=== PATIENT | male | born 1950 | race Caucasian/White ===

== ENCOUNTER 2022-12-07 17:24 | Inpatient (IN) | payer MEDICARE, OTHER ==
[~2022-12-07] VITALS: Ht 182.9 cm; Wt 72.8 kg
[2022-12-07 17:50] LABS: BASOPHILS ABSOLUTE AUTO 0.04 K/mm3 (0.00-0.23); BASOPHILS PERCENT AUTO 1 % (0-2); EOSINOPHILS ABSOLUTE AUTO 0.09 K/mm3 (0.00-0.68); EOSINOPHILS PERCENT AUTO 2 % (0-6); IMMATURE GRAN ABSOLUTE AUTO 0.02 K/mm3 (0.00-0.10); IMMATURE GRAN PERCENT AUTO 0 % (0-1); LYMPHOCYTES ABSOLUTE AUTO 1.79 K/mm3 (0.84-5.20); LYMPHOCYTES PERCENT AUTO 29 % (21-46); MONOCYTES ABSOLUTE AUTO 0.74 K/mm3 (0.16-1.47); MONOCYTES PERCENT AUTO 12 % (4-13); Mean Corpuscular HGB 20.6 pg (26.0-34.0); Mean Corpuscular HGB Conc 28.7 g/dL (31.5-36.5); Mean Corpuscular Volume 72 fL (80-100); Mean Platelet Volume 9.7 fL (9.1-12.4); NEUTROPHILS ABSOLUTE AUTO 3.42 K/mm3 (1.96-9.15); NEUTROPHILS PERCENT AUTO 56 % (41-73); Platelet Count 132 K/mm3 (150-400); RDW Coefficient Variation 18.6 % (11.7-14.2); RDW Standard Deviation 48.2 fL (35.1-46.3); Red Blood Cell Count 2.33 M/mm3 (4.30-5.90)
[2022-12-07 17:57] LABS: Hematocrit 16.7 % (37.0-53.0); Hemoglobin 4.8 g/dL (13.5-17.5)
[2022-12-07 18:27] LABS: Albumin, Blood 3.1 g/dL (3.4-5.0); Albumin/Globulin Ratio 0.6 (0.8-1.8); Bilirubin, Total 0.7 mg/dL (0.1-1.0); Bun/Creatinine Ratio 26.9 (12.0-20.0); Calcium, Blood 8.6 mg/dL (8.5-10.1); Creatinine, Blood 1.19 mg/dL (0.60-1.20); Globulin, Blood 5.4 g/dL (2.2-4.0); Potassium, Blood 4.4 mmol/L (3.5-5.5); Total Protein, Blood 8.5 g/dL (6.4-8.2)
[2022-12-07 20:34] LABS: Base Excess Venous -5.2 mmol/L; Bicarbonate Venous 20.4 mmol/L (24.0-30.0); PCO2 Venous 30.7 mmHg (38-42); pH Blood Venous 7.41 (7.34-7.37)
[2022-12-07 20:47] LABS: IMMATURE RETIC FRACTION 25.7 % (2.3-16.0); RETIC HGB EQUIVALENT 20.8 pg (28.20-36.60); RETICULOCYTE ABSOLUTE 0.0413 M/mm3 (0.0200-0.1100); RETICULOCYTE COUNT PERCENT 1.7 % (0.50-2.50)
[2022-12-07 21:16] LABS: Magnesium, Blood 1.7 mg/dL (1.6-2.4)
[2022-12-07 21:17] LABS: Percent Saturation 3.9 % (20.0-50.0); Thyroid Stimulating Hormone 1.81 uIU/mL (0.360-4.800)
[2022-12-07 21:47] VITALS: BP 156/73
[2022-12-07] MEDS ORDERED: LISI20 PO (22:43)
[2022-12-07 23:32] VITALS: BP 154/76
[2022-12-08] VITALS (10 sets, daily range): BP systolic 107–148; BP diastolic 56–86
--- NOTE | 2022-12-08 06:19 | NUR ---
SHIFT SUMMARY: "REBECCA" IS A&OX4. VSS, NO ACUTE EVENTS OVERNIGHT. PT HAS RECEIVED THREE BAGS OF BLOOD THIS SHIFT, ONE IN THE ER AND TWO ON THE FLOOR. PT HAS DENIED ANY NEW SYMPTOMS. HE IS A STANDBY ASSIST TO THE BATHROOM, UNSTEADINESS NOTED. PT HAS COMPLAINED OF PAIN TO HIS RIGHT FOOT AND ANKLE. ON-CALL PHYSICIAN NOTIFIED, ORDER FOR URIC ACID LAB OBTAINED, WELL HEAT AND COLD THERAPIES. IV TO BILATERAL AC'S PATENT. HE IS TOLERATING PO INTAKE WELL. HE IS LYING IN BED WITH THE CALL LIGHT IN REACH. WCTM UNTIL REPORT IS GIVEN TO DAY SHIFT RN.
[2022-12-08 06:37] LABS: Hematocrit 23.9 % (37.0-53.0); Hemoglobin 7.6 g/dL (13.5-17.5)
[2022-12-08 07:08] LABS: Bun/Creatinine Ratio 25.4 (12.0-20.0); Calcium, Blood 8.6 mg/dL (8.5-10.1); Creatinine, Blood 1.14 mg/dL (0.60-1.20); Magnesium, Blood 1.6 mg/dL (1.6-2.4); Potassium, Blood 4.4 mmol/L (3.5-5.5)
--- NOTE | 2022-12-08 09:00 | NUR ---
pt laying in bed awake, a/ox3, irritable, apparetly did not sleep last night and just wants to sleep, doesn't want breakfast, lungs are clear t/o, resp even and unlabored, no cough noted, hrr, murmur noted, 2+ edema noted, cap refill <3 sec, vs stable, afebrile, iv site is clear and patent, btx4, abd flat soft nontender, voids without diff, skin has rft red, otherwise c/w/d, levar, he is a one person assist with a walker, jaja, call light in reach.
--- NOTE | 2022-12-08 16:34 | NUR ---
pt was given tylenol for right leg pain, when checked on him he was sleeping, is sleeping still. call light in reach.
--- NOTE | 2022-12-08 18:07 | NUR ---
pt states tylenol helped his leg pain, and was able to sleep after took affect, slept most of the day, states he feels better as he was up all night, no acute changes this shift. call light in reach.
--- NOTE | 2022-12-08 18:44 | NUR ---
Pt did eat dinner tonight, had a large liquid bm after eating, stool was brown, linen changed, call light in reach.
[2022-12-09 05:04] VITALS: BP 117/64
--- NOTE | 2022-12-09 07:35 | NUR ---
Shift Summary Pt c/o throbbing pain in his R ankle, knee and foot. His right food was also noticably more swollen than his L foot. Tylenol was controlling his pain very well, night doctor ordered PRN Oxy Q4. Pt slept well for 4 hours once pain was controlled. Pt had diahrrea at the start of shift and then one more BM around 2200 which he states was more solid, stool sample sent to lab.
[2022-12-09 08:06] VITALS: BP 140/68
[2022-12-09 08:58] LABS: BASOPHILS ABSOLUTE AUTO 0.03 K/mm3 (0.00-0.23); BASOPHILS PERCENT AUTO 1 % (0-2); EOSINOPHILS ABSOLUTE AUTO 0.11 K/mm3 (0.00-0.68); EOSINOPHILS PERCENT AUTO 2 % (0-6); Hematocrit 23.6 % (37.0-53.0); Hemoglobin 7.5 g/dL (13.5-17.5); IMMATURE GRAN ABSOLUTE AUTO 0.01 K/mm3 (0.00-0.10); IMMATURE GRAN PERCENT AUTO 0 % (0-1); LYMPHOCYTES ABSOLUTE AUTO 1.47 K/mm3 (0.84-5.20); LYMPHOCYTES PERCENT AUTO 28 % (21-46); MONOCYTES ABSOLUTE AUTO 0.67 K/mm3 (0.16-1.47); MONOCYTES PERCENT AUTO 13 % (4-13); Mean Corpuscular HGB 23.7 pg (26.0-34.0); Mean Corpuscular HGB Conc 31.8 g/dL (31.5-36.5); Mean Corpuscular Volume 74 fL (80-100); Mean Platelet Volume 9.9 fL (9.1-12.4); NEUTROPHILS ABSOLUTE AUTO 3.04 K/mm3 (1.96-9.15); NEUTROPHILS PERCENT AUTO 57 % (41-73); Platelet Count 116 K/mm3 (150-400); RDW Coefficient Variation 18.8 % (11.7-14.2); Red Blood Cell Count 3.17 M/mm3 (4.30-5.90); White Blood Cell Count 5.33 K/mm3 (4.00-11.30)
[2022-12-09 09:49] LABS: Albumin, Blood 2.7 g/dL (3.4-5.0); Albumin/Globulin Ratio 0.6 (0.8-1.8); Bilirubin, Total 1.6 mg/dL (0.1-1.0); Calcium, Blood 8.3 mg/dL (8.5-10.1); Creatinine, Blood 1.04 mg/dL (0.60-1.20); Globulin, Blood 4.7 g/dL (2.2-4.0); Total Protein, Blood 7.4 g/dL (6.4-8.2)
[2022-12-09 09:56] LABS: Stool Occult Blood Guaiac 1 Neg (Neg)
[2022-12-09 15:57] VITALS: BP 141/82
--- NOTE | 2022-12-09 18:16 | NUR ---
DR. GLOVER CONTACTED PT REPORTS WORSENING PAIN IN RLE FROM KNEE TO TOES-PT STATES WORSE BY KNEE AND GETTING WORSE T/O SHIFT. PAIN MEDICATED PER EMAR-MEDS ADJUST. PLAN TO REPORT TO DAY SHIFT RN FOR FURTHER TX IN AM.
--- NOTE | 2022-12-09 18:40 | NUR ---
SHIFT SUMMARY PT A&OX4 AND IN PLEASENT MOOD T/O SHIFT. C/O WORSENING PAIN-DR. GLOVER NOTIFIED PLAN TO PASS ON TO AM NURSE. PAIN MEDICATED PER EMAR. TOLERATING PO INTAKE WELL VSS. CALL LIGHT W/IN REACH.
[2022-12-09 19:14] VITALS: BP 157/88
--- NOTE | 2022-12-10 06:29 | NUR ---
Shift Summary Dr. Torres came to see pt regarding possible blood clot in R leg. R leg measured larger than L leg and he ordered D-Dimer and V. Duplex. D-Dimer was elevated, awaiting results of V. Duplex. Pt c/o 02/12 R knee pain which is well controlled by PRN Oxycodone as ordered. Incontinent voids, attends changed PRN. Slept well through much of the night.
[2022-12-10 06:33] VITALS: BP 111/57
[2022-12-10 07:26] VITALS: BP 113/59
[2022-12-10 08:55] LABS: BASOPHILS ABSOLUTE AUTO 0.04 K/mm3 (0.00-0.23); BASOPHILS PERCENT AUTO 1 % (0-2); EOSINOPHILS ABSOLUTE AUTO 0.13 K/mm3 (0.00-0.68); EOSINOPHILS PERCENT AUTO 2 % (0-6); Hematocrit 26.7 % (37.0-53.0); Hemoglobin 8.3 g/dL (13.5-17.5); IMMATURE GRAN ABSOLUTE AUTO 0.02 K/mm3 (0.00-0.10); IMMATURE GRAN PERCENT AUTO 0 % (0-1); LYMPHOCYTES ABSOLUTE AUTO 1.43 K/mm3 (0.84-5.20); LYMPHOCYTES PERCENT AUTO 22 % (21-46); MONOCYTES ABSOLUTE AUTO 0.69 K/mm3 (0.16-1.47); MONOCYTES PERCENT AUTO 10 % (4-13); Mean Corpuscular HGB 23.7 pg (26.0-34.0); Mean Corpuscular HGB Conc 31.1 g/dL (31.5-36.5); Mean Corpuscular Volume 76 fL (80-100); Mean Platelet Volume 9.6 fL (9.1-12.4); NEUTROPHILS ABSOLUTE AUTO 4.32 K/mm3 (1.96-9.15); NEUTROPHILS PERCENT AUTO 65 % (41-73); Platelet Count 135 K/mm3 (150-400); RDW Coefficient Variation 19.6 % (11.7-14.2); RDW Standard Deviation 53.6 fL (35.1-46.3); White Blood Cell Count 6.63 K/mm3 (4.00-11.30)
--- NOTE | 2022-12-10 09:00 | NUR ---
pt laying in bed awake a/ox3, cooperative with care, follows commands well, states his right knee and foot are painful, lungs are clear t/o, resp evena and unlabored, no cough noted, on r/a, hrr, murmur noted, edema noted to right le, piv site to r and l ac's, sites are clear and patent, bt x4, abd flat soft nontender, voids without diff, skin c/w/d, maew, jaja, call light in reach.
[2022-12-10 09:25] LABS: Albumin, Blood 2.8 g/dL (3.4-5.0); Albumin/Globulin Ratio 0.5 (0.8-1.8); Bilirubin, Total 1.7 mg/dL (0.1-1.0); Bun/Creatinine Ratio 24.5 (12.0-20.0); Calcium, Blood 8.9 mg/dL (8.5-10.1); Creatinine, Blood 1.06 mg/dL (0.60-1.20); Globulin, Blood 5.1 g/dL (2.2-4.0); Total Protein, Blood 7.9 g/dL (6.4-8.2)
[2022-12-10 16:32] VITALS: BP 131/62
--- NOTE | 2022-12-10 18:08 | NUR ---
pt complaining of right knee and foot pain, states 03/15, will medicate, pt/ot worked with him today, no further changes this shift. call light in reach.
[2022-12-10 20:06] VITALS: BP 111/58
[2022-12-11 03:47] VITALS: BP 123/58
--- NOTE | 2022-12-11 06:45 | NUR ---
SHIFT SUMMARY NOC PT A/O X 4. NO ACUTE CHANGES TO REPORT. PT WAS MEDICATED PER EMAR FOR PAIN IN R KNEE. PT R KNEE XR CAME BACK WITH SEVERE OSTEO ARTHRITIS WITH A SMALL EFFUSION, AND CHONDOROCALCINOSIS. PT IS CURRENTLY RESTING WITH BED IN LOWEST POSITION, AND CALL LIGHT WITHIN REACH.
[2022-12-11 07:48] VITALS: BP 117/60
[2022-12-11 10:08] LABS: BASOPHILS ABSOLUTE AUTO 0.04 K/mm3 (0.00-0.23); BASOPHILS PERCENT AUTO 1 % (0-2); EOSINOPHILS ABSOLUTE AUTO 0.25 K/mm3 (0.00-0.68); EOSINOPHILS PERCENT AUTO 3 % (0-6); Hematocrit 26.1 % (37.0-53.0); IMMATURE GRAN ABSOLUTE AUTO 0.03 K/mm3 (0.00-0.10); IMMATURE GRAN PERCENT AUTO 0 % (0-1); LYMPHOCYTES ABSOLUTE AUTO 1.93 K/mm3 (0.84-5.20); LYMPHOCYTES PERCENT AUTO 26 % (21-46); MONOCYTES ABSOLUTE AUTO 0.71 K/mm3 (0.16-1.47); MONOCYTES PERCENT AUTO 10 % (4-13); Mean Corpuscular HGB Conc 30.7 g/dL (31.5-36.5); Mean Corpuscular Volume 78 fL (80-100); Mean Platelet Volume 10.1 fL (9.1-12.4); NEUTROPHILS ABSOLUTE AUTO 4.49 K/mm3 (1.96-9.15); NEUTROPHILS PERCENT AUTO 60 % (41-73); Platelet Count 145 K/mm3 (150-400); RDW Coefficient Variation 21.1 % (11.7-14.2); Red Blood Cell Count 3.33 M/mm3 (4.30-5.90); White Blood Cell Count 7.45 K/mm3 (4.00-11.30)
[2022-12-11 10:34] LABS: Albumin, Blood 2.7 g/dL (3.4-5.0); Albumin/Globulin Ratio 0.5 (0.8-1.8); Bilirubin, Direct 0.8 mg/dL (0.0-0.3); Bilirubin, Indirect 0.6 mg/dL (0.1-0.7); Bilirubin, Total 1.4 mg/dL (0.1-1.0); Calcium, Blood 8.9 mg/dL (8.5-10.1); Creatinine, Blood 1.25 mg/dL (0.60-1.20); Globulin, Blood 5.1 g/dL (2.2-4.0); Potassium, Blood 3.9 mmol/L (3.5-5.5); Total Protein, Blood 7.8 g/dL (6.4-8.2)
--- NOTE | 2022-12-11 14:15 | NUR ---
1345: RN APPROACHED BY WHO STATES PT IS CONFUSED. RN ENTERED ROOM, PT IS ALERT TO SELF ONLY. PT WAS A&O x3 THIS AM. PT STATED THIS AM HIS LAST ETOH WAS 8 WEEKS AGO. STATES PT HAS NOT STOPPED DRINKING AND HAS MULTIPLE HOLE IN THE LEONE AT HOME FROM HIM FALLING INTO WITH HIS HEAD. LAST FALL SHE RECALLS WAS 1 MONTH AGO. BP 11/61, HR 103, 02 SAT 99%RA. RESP EVEN NONLABORED, SKIN WARM DRY. WHEN ASKED AGAIN HIS LAST ETOH PT STATES 1950. CORRECTED HIM STATING THATS HIS BD, ASKED AGAIN WITH SAME RESPONSE. DR. MORE CALLED, STAT CT HEAD ORDERED AND WAS ASKED TO ENTER [facility] PROTOCOLS/ASSSESSMENT IN. AST FROM SHAREPOINT MANAGER TO ENTER ORDERS. PT TO CT AT 1415.
[2022-12-11 14:28] VITALS: BP 129/66
--- NOTE | 2022-12-11 17:48 | NUR ---
SHIFT SUMMARY: PT WAS A&OX3 UNTIL 1345, SEE PREVIOUS NOTE. NO CHANGE FROM 1345. CIWA SCALE REMAINS 3. ALERT TO SELF ONLY. RIGHT KNEE PAIN MANAGED WITH CURRENT REGIME. VSS. WILL CONTINUE TO FOLLOW.
[2022-12-11 19:59] VITALS: BP 119/51
[2022-12-12 04:34] VITALS: BP 126/54
--- NOTE | 2022-12-12 04:39 | NUR ---
SHIFT SUMMARY PT LAYING IN BED DURING BEDSIDE REPORT FROM [place]TE RN- PT REPORTS PAIN IN RIGHT KNEE AND REQUESTED PAIN DURING ASSESSMENT- PT FEARFUL OF RIGHT KNEE BEING TOUCHED OR MOVED- PT INCONTIENT OF URINE- BRIEF CHANGED T/O NIWIHT- PT C/O PAIN IN THE RIGHT KNEE WITH EVERY BRIEF CHANGED AND REPOSITIONED- ELEVATED BILAT LEGS WITH PILLOWS TO DECREASE SWELLING AND FOR COMFORT- 0140 TEDDY CALLED FOR UPDATE- ACCORDING TO PT RIGHT KNEE IS CHRONICALLY SWOLLEN AND PAINFUL - PER , PT'S PAIN HAS INCREASED SINCE ADMISSION- PT CONTINUES WITH [facility] BED LOW POSITION, CALL LIGHT WITHIN REACH
[2022-12-12 06:41] LABS: Albumin, Blood 2.5 g/dL (3.4-5.0); Albumin/Globulin Ratio 0.5 (0.8-1.8); Bilirubin, Total 1.5 mg/dL (0.1-1.0); Bun/Creatinine Ratio 28.9 (12.0-20.0); Calcium, Blood 8.8 mg/dL (8.5-10.1); Creatinine, Blood 1.14 mg/dL (0.60-1.20); Globulin, Blood 5.1 g/dL (2.2-4.0); Potassium, Blood 4.4 mmol/L (3.5-5.5); Total Protein, Blood 7.6 g/dL (6.4-8.2)
[2022-12-12 07:37] VITALS: BP 113/54
[2022-12-12 09:31] LABS: BASOPHILS ABSOLUTE AUTO 0.05 K/mm3 (0.00-0.23); BASOPHILS PERCENT AUTO 1 % (0-2); EOSINOPHILS ABSOLUTE AUTO 0.08 K/mm3 (0.00-0.68); EOSINOPHILS PERCENT AUTO 1 % (0-6); Hematocrit 26.6 % (37.0-53.0); Hemoglobin 8.3 g/dL (13.5-17.5); IMMATURE GRAN ABSOLUTE AUTO 0.02 K/mm3 (0.00-0.10); IMMATURE GRAN PERCENT AUTO 0 % (0-1); LYMPHOCYTES ABSOLUTE AUTO 1.72 K/mm3 (0.84-5.20); LYMPHOCYTES PERCENT AUTO 22 % (21-46); MONOCYTES PERCENT AUTO 10 % (4-13); Mean Corpuscular HGB 24.4 pg (26.0-34.0); Mean Corpuscular HGB Conc 31.2 g/dL (31.5-36.5); Mean Corpuscular Volume 78 fL (80-100); Mean Platelet Volume 9.6 fL (9.1-12.4); NEUTROPHILS ABSOLUTE AUTO 5.23 K/mm3 (1.96-9.15); NEUTROPHILS PERCENT AUTO 66 % (41-73); Platelet Count 136 K/mm3 (150-400); RDW Coefficient Variation 21.9 % (11.7-14.2); RDW Standard Deviation 60.5 fL (35.1-46.3)
[2022-12-12 14:54] VITALS: BP 104/61
--- NOTE | 2022-12-12 17:08 | NUR ---
SHIFT SUMMARY: Pt remains pleasantly confused to self this shift. Does follow commands. No other deficits assessed. Pt did sit at side of bed with PT today. Pain managed with current regime and is sleeping without grimace. Incontinent of urine. Phoebe care and bath provided. Repositioned for comfort frequently. Skin intact. at bedside earlier, no questions at this time. Her work phone # for [employer] is [phone]
[2022-12-12 19:40] VITALS: BP 125/58
--- NOTE | 2022-12-13 00:27 | NUR ---
ATTEMPTED TO CALL GI CONSULT IN, PER ANSWERING SERVICE WE HAVE TO CALL DR. HEARN DIRECTLY TOMORROW AM FOR THE CONSULT. WILL RELAY TO DAYSHIFT RN.
--- NOTE | 2022-12-13 04:15 | NUR ---
SHIFT SUMMARY; NO ACUTE CHANGES OVERNIGHT. THE PT IS AXO X3, PLEASANTLY CONFUSED AND EASILY REDIRECTABLE. THE PT HAS BEEN SLEEPING FOR THE MAJORITY OF THE NIGHT. THE PT REPORTS SOME MUSCLE PAIN IN HIS HIPS AND KNEES, TYLENOL AND THE HEATING PAD SEEM TO BE PROVIDING THE PT WITH GOOD RELIEF. THE PT IS A 2 ASSIST TO THE BEDSIDE, BUT THE PT HAS NOT ATTEMPTED OOB THIS EVENING. THE PT IS AWAITING A GI CONSULT-DR. FRANZ. BY THIS AM, TO CALL FOR CONSULT. CURRENTLY THE PT IS SLEEPING IN BED WITH THE BED IN THE LOWEST POSITION AND THE CALL LIGHT AT BEDSIDE.
[2022-12-13 04:58] VITALS: BP 117/57
[2022-12-13 07:12] LABS: Albumin, Blood 2.4 g/dL (3.4-5.0); Albumin/Globulin Ratio 0.5 (0.8-1.8); Bun/Creatinine Ratio 34.5 (12.0-20.0); Calcium, Blood 8.9 mg/dL (8.5-10.1); Creatinine, Blood 0.99 mg/dL (0.60-1.20); Globulin, Blood 5.1 g/dL (2.2-4.0); Potassium, Blood 4.2 mmol/L (3.5-5.5); Total Protein, Blood 7.5 g/dL (6.4-8.2)
[2022-12-13 07:27] VITALS: BP 122/56
[2022-12-13 15:26] VITALS: BP 123/58
--- NOTE | 2022-12-13 16:25 | NUR ---
SHIFT SUMMARY PATIENT IS ALERT AND ORIENTED. PATIENT HAS HAD NO COMPLAINTS OF NAUSEA, SOB OR VOMITTING THIS SHIFT. PATIENT COMPLAINED OF PAIN AND MEDICATED PER EMAR. PATIENT HAS HAD NO ACUTE EVENTS THIS SHIFT. VITAL SIGNS REVIEWED. PATIENT WORKED WELL WITH PHYSICAL THERAPY. BED IN LOCKED AND LOWEST POSITION. CALL LIGHT IN PLACE. WILL MONITOR UNTIL SHIFT CHANGE.
[2022-12-13 19:53] VITALS: BP 133/64
--- NOTE | 2022-12-14 04:39 | NUR ---
SHIFT SUMMARY; NO ACUTE CHANGES OVERNIGHT. THE PT IS AXO 3 THIS EVENING, FORGETFULL AT TIMES. THE PT HAS NOT ATTEMPTED TO GET OOB T/O THE NIGHT. THE PTS LEGS WERE VERY PAINFUL AT THE BEGINNING OF SHIFT, HOWEVER, AFTER BEING MEDICATED THE PTS LEG PAIN WAS MINIMAL. THE PT HAD A LOW GRADE FEVER AT THE BEGINNIG OF SHIFT FOR WHICH HE RECIEVED TYLENOL AND THE FEVER RESOLVED. THE PT DENIES ANY SOB, CHEST PAIN/PRESSURE OR N/V. CURRENTLY THE PT IS SLEEPING IN BED WITH THE BED IN THE LOWEST POSITION AND THE CALL LIGHT AT BEDSIDE.
[2022-12-14 05:07] VITALS: BP 116/61
[2022-12-14 06:15] LABS: Albumin, Blood 2.3 g/dL (3.4-5.0); Albumin/Globulin Ratio 0.5 (0.8-1.8); Bun/Creatinine Ratio 34.3 (12.0-20.0); Calcium, Blood 8.7 mg/dL (8.5-10.1); Creatinine, Blood 0.96 mg/dL (0.60-1.20); Globulin, Blood 5.1 g/dL (2.2-4.0); Potassium, Blood 4.4 mmol/L (3.5-5.5); Total Protein, Blood 7.4 g/dL (6.4-8.2)
[2022-12-14 07:10] VITALS: BP 115/64
[2022-12-14 07:53] LABS: BASOPHILS ABSOLUTE AUTO 0.03 K/mm3 (0.00-0.23); BASOPHILS PERCENT AUTO 1 % (0-2); EOSINOPHILS ABSOLUTE AUTO 0.15 K/mm3 (0.00-0.68); EOSINOPHILS PERCENT AUTO 3 % (0-6); Hemoglobin 7.9 g/dL (13.5-17.5); IMMATURE GRAN ABSOLUTE AUTO 0.01 K/mm3 (0.00-0.10); IMMATURE GRAN PERCENT AUTO 0 % (0-1); LYMPHOCYTES ABSOLUTE AUTO 1.31 K/mm3 (0.84-5.20); LYMPHOCYTES PERCENT AUTO 24 % (21-46); MONOCYTES PERCENT AUTO 13 % (4-13); Mean Corpuscular HGB 24.4 pg (26.0-34.0); Mean Corpuscular HGB Conc 30.4 g/dL (31.5-36.5); Mean Corpuscular Volume 80 fL (80-100); Mean Platelet Volume 9.7 fL (9.1-12.4); NEUTROPHILS PERCENT AUTO 60 % (41-73); Platelet Count 125 K/mm3 (150-400); RDW Coefficient Variation 22.4 % (11.7-14.2); RDW Standard Deviation 63.7 fL (35.1-46.3); Red Blood Cell Count 3.24 M/mm3 (4.30-5.90)
[2022-12-14 15:43] VITALS: BP 139/62
--- NOTE | 2022-12-14 18:08 | NUR ---
SHIFT SUMMARY PATIENT IS ALERT AND ORIENTED BUT FORGETFUL. PATIENT HAS HAD NO ACUTE EVENTS THIS SHIFT. VITAL SIGNS REVIEWED. PATIENT HAS HAD A LOW GRADE FEVER. MEDICATED PER EMAR. MEDICATED FOR PAIN THIS SHIFT. PATIENT HAS NOT COMPLAINED OF SOB, NAUSEA OR VOMITTING THIS SHIFT. PATIENT HAD A MODERATE BOWEL MOVEMENT THIS SHIFT. BED IN LOCKED AND LOWEST POSITION. CALL LIGHT IN PLACE. WILL MONITOR UNTIL SHIFT CHANGE.
[2022-12-14 19:15] VITALS: BP 124/69
--- NOTE | 2022-12-15 04:58 | NUR ---
SHIFT SUMMARY; NO ACUTE CHANGES OVERNIGHT. THE PT HAS BEEN SLEEPING THE MAJORITY OF THE NIGHT. THE PT IS AXO X3 THIS EVENING. THE PT HAS NOT ATTEMPTED OOB THIS SHIFT. THE PT IS INCONTINENT. THE PT HAS REQUESTED PRN PAIN MEDICATION FOR LEG PAIN ONCE THIS SHIFT, MEDICATED WITH ROXICODONE W/ GOOD RELIEF. THE PT OTHERWISE DENIES ANY OTHER PAIN, CHEST PAIN/PRESSURE, N/V OR SOB. CURRENTLY THE PT IS SLEEPING IN BED WITH THE BED IN THE LOWEST POSITION AND THE CALL LIGHT AT BEDSIDE.
[2022-12-15 06:02] VITALS: BP 120/59
[2022-12-15 08:25] VITALS: BP 117/67
[2022-12-15 16:18] VITALS: BP 129/64
--- NOTE | 2022-12-15 17:21 | NUR ---
SHIFT SUMMARY PATIENT IS ALERT AND ORIENTED 2-3X. PATIENT HAS HAD NO ACUTE EVENTS THIS SHIFT. VITAL SIGNS REVIEWED. PATIENT HAS COMPLAINED OF PAIN THIS SHIFT AND MEDICATED PER EMAR. PATIENT WORKED WITH PHYSICAL THERAPY. PATIENTS HAS BEEN WORKING WITH CARE MANAGEMENT ON DISCHARGE PLANNING. BED IN LOCKED AND LOWEST POSITION. CALL LIGHT IN PLACE. WILL MONITOR UNTIL SHIFT CHANGE.
[2022-12-15 19:10] VITALS: BP 125/64
[2022-12-16 02:48] VITALS: BP 118/64
--- NOTE | 2022-12-16 04:16 | NUR ---
SHIFT SUMMARY ADMITTED FOR ANEMIA/BLE EDEMA. FULL CODE. PLAN IS FOR PLACEMENT. HE IS INCONTINENT. ATTENDS IN PLACE. MEDS GIVEN WHOLE W/WATER. ON RA. REGULAR DIET. OXYCODONE GIVEN FOR PAIN. HX OF ETOH, DEMENTIA. HE HAS ONLY BRIEFLY STOOD AT BEDSIDE HERE DURING THERAPY.
[2022-12-16 04:53] LABS: Hematocrit 24.8 % (37.0-53.0); Hemoglobin 7.7 g/dL (13.5-17.5); Mean Corpuscular HGB 24.4 pg (26.0-34.0); Mean Corpuscular Volume 79 fL (80-100); Platelet Count 141 K/mm3 (150-400); RDW Coefficient Variation 23.2 % (11.7-14.2); RDW Standard Deviation 65.9 fL (35.1-46.3); Red Blood Cell Count 3.15 M/mm3 (4.30-5.90); White Blood Cell Count 6.04 K/mm3 (4.00-11.30)
[2022-12-16 05:09] LABS: Albumin, Blood 2.3 g/dL (3.4-5.0); Albumin/Globulin Ratio 0.5 (0.8-1.8); Bilirubin, Total 0.7 mg/dL (0.1-1.0); Bun/Creatinine Ratio 33.6 (12.0-20.0); Calcium, Blood 8.9 mg/dL (8.5-10.1); Creatinine, Blood 1.1 mg/dL (0.60-1.20); Magnesium, Blood 1.9 mg/dL (1.6-2.4); Phosphorus, Blood 3.4 mg/dL (2.5-4.9); Potassium, Blood 4.7 mmol/L (3.5-5.5); Total Protein, Blood 7.3 g/dL (6.4-8.2)
[2022-12-16 05:54] LABS: BAND PERCENT MAN 1 % (0-8); BASOPHILS PERCENT MAN 0 % (0-2); EOSINOPHILS ABSOLUTE MAN 0.18 K/mm3 (0.00-0.68); EOSINOPHILS PERCENT MAN 3 % (0-6); LYMPHOCYTES % ATYPICAL MANUAL 2 % (0-0); LYMPHOCYTES ABSOLUTE MAN 1.75 K/mm3 (0.84-5.20); LYMPHOCYTES PERCENT MAN 27 % (21-46); MONOCYTES PERCENT MAN 10 % (4-13); SEG NEUTROPHILS PERCENT MAN 57 % (41-73); TOTAL CELLS COUNTED 100
[2022-12-16 07:16] VITALS: BP 112/64
[2022-12-16 15:30] VITALS: BP 117/60
--- NOTE | 2022-12-16 18:21 | NUR ---
ENCOURAGED PATIENT SEVERAL TIMES TO DANGLE ON EDGE OF THE BED FOR DINNER, PLACED DINNER AT THE EDGE OF THE BED, PATIENT REFUSED AND ATE HIS DINNER FROM REACHING OVER TO MEAL TRAY.
--- NOTE | 2022-12-16 18:48 | NUR ---
SHIFT SUMMARY PT UP TO SIDE OF BED FOR BREAKFAST AND LUNCH BUT WOULDN'T SIT ON SIDE OF BED FOR DINNER. STATES HE CAN'T MOVE HIS LEGS. HE REPORTS SEVERE PAIN ANYTIME RLE TOUCHED OR MOVED OR BENT IN ANY WAY. EXPLAINED TO PT HE ISN'T MOVING HIS LEGS BECAUSE THEY ARE PAINFUL. MEDICATED WITH PREDNISONE AND OXYCODONE. WILL CONTINUE TO MONITER.
[2022-12-16 20:00] VITALS: BP 104/58
--- NOTE | 2022-12-17 04:42 | NUR ---
SHIFT SUMMARY A/O BUT WITH FLAT AFFECT, COMPLAINT OF PAIN ONLY WHEN MOVED OR TOUCHED BUT SHOWS NO DISTRESS, PT NEEDS ENC TO MOVE AND TURN IN BED AND POSSIBLY SIT UP IN CHAIR FOR BREAKFAST. PLAN IS TO MANAGE PAIN AND WAIT FOR SNF PLACEMENT.
[2022-12-17 05:38] VITALS: BP 115/68
[2022-12-17 08:44] VITALS: BP 122/69
[2022-12-17 10:37] LABS: HBSAG SCREEN Negative (Negative); HCV AB Reactive (Non Reactive); HEP A AB, IGM Negative (Negative); HEP B CORE AB, IGM Negative (Negative); HEPATITIS C QUANTITATION 209000 IU/mL (.)
[2022-12-17] MEDS ORDERED: Lisinopril2.5 MG PO (13:30)
[2022-12-17] MEDS ORDERED: Acetaminophen650 M1 PO (13:31)
[2022-12-17] MEDS ORDERED: Cyclobenzaprine5 MG PO (13:32)
[2022-12-17] MEDS ORDERED: PRED20 PO (13:32)
[2022-12-17 13:58] LABS: SARS-Cov-2 (COVID-19) PCR, MMC NEGATIVE (NEGATIVE)
--- NOTE | 2022-12-17 15:03 | NUR ---
REPORT TO [facility] REPORT CALLED TO [facility]. PATIENT TO BE TRANSFERED VIA WHEELCHAIR AT 1630. TRANSPORTATION ARRANGED. CARE MANAGEMENT COMPLETED PACKET. PACKET TO BE SENT WITH PATIENT.
--- NOTE | 2022-12-17 18:17 | NUR ---
DISCHARGE TO [facility] PATIENT DISCHARGED TO [facility]. FAMILY PRESENT AT DISCHARGE AND BELONGINGS TAKEN. PATIENT TRANSPORTED TO [facility] VIA WHEELCHAIR TRANSPORT. IV DC'D PRIOR TO DISCHARGE. FAMILY NOTIFIED THAT REPORT CALLED TO FACILITY PRIOR TO TRANSPORT.
[2022-12-19 14:12] LABS: FACTOR VIII ACTIVITY 268 % (56-140); INTERPRETATION Note (.); VON WILLEBRAND FACTOR (VWF) AG 435 % (50-200); VWF ACTIVITY 226 % (50-200)
== END 2022-12-17 16:51 | DRG 812 ==
LOC: ER 17:24 → MEDS 19:37 → ENPENDDIS 12-17 12:48 → MEDS 12-17 16:51
PROVIDERS: Family Medicine; Internal Medicine; Nurse Practitioner Acute Care; Student in an Organized Health Care Education/Training Program; ADMIT Student in an Organized Health Care Education/Training Program
PROC: 30233N1 Transfusion of Nonautologous Red Blood Cells into Peripheral Vein, Percutaneous Approach (ICD-10-PCS; principal; 2022-12-17)
DX: D50.9 Iron deficiency anemia, unspecified (principal); N17.9 Acute kidney failure, unspecified; E44.0 Moderate protein-calorie malnutrition; D69.6 Thrombocytopenia, unspecified; F17.210 Nicotine dependence, cigarettes, uncomplicated; I35.0 Nonrheumatic aortic (valve) stenosis; B18.2 Chronic viral hepatitis C; F12.90 Cannabis use, unspecified, uncomplicated; F10.20 Alcohol dependence, uncomplicated; R01.1 Cardiac murmur, unspecified; K55.20 Angiodysplasia of colon without hemorrhage; F01.B0 Vascular dementia, moderate, without behavioral disturbance, psychotic disturbance, mood disturbance, and anxiety; M17.0 Bilateral primary osteoarthritis of knee; I12.9 Hypertensive chronic kidney disease with stage 1 through stage 4 chronic kidney disease, or unspecified chronic kidney disease; N18.2 Chronic kidney disease, stage 2 (mild); K76.0 Fatty (change of) liver, not elsewhere classified; Z96.653 Presence of artificial knee joint, bilateral; Z20.822 Contact with and (suspected) exposure to COVID-19; D63.1 Anemia in chronic kidney disease; Z71.41 Alcohol abuse counseling and surveillance of alcoholic; Z79.811 Long term (current) use of aromatase inhibitors; Z86.19 Personal history of other infectious and parasitic diseases; Z68.21 Body mass index [BMI] 21.0-21.9, adult
CPT/HCPCS: 36415; 36430; 70450; 73562-RT; 73700; 76705; 80048; 80053; 80074; 80076; 82140; 82272; 82607; 82728; 82746; 82803; 83010; 83540; 83550; 83615; 83735; 84100; 84443; 84550; 85014; 85018; 85025; 85045; 85379; 86850; 86900; 86901; 86923; 93005; 93010; 93306; 93971; 97110; 97129; 97130; 97162; 97166; 97530; 97535; 99285-25; A9270; J2916; J7030; J7040; J7050; J7512; P9016; U0002

== ENCOUNTER → 2022-12-07 | Outpatient (CLI) | payer OTHER ==
[~2022-12-07] MED LIST: LISI20 PO
[2022-12-07 16:40] LABS: BASOPHILS ABSOLUTE AUTO 0.02 K/mm3 (0.00-0.23); BASOPHILS PERCENT AUTO 0 % (0-2); EOSINOPHILS ABSOLUTE AUTO 0.07 K/mm3 (0.00-0.68); EOSINOPHILS PERCENT AUTO 1 % (0-6); IMMATURE GRAN ABSOLUTE AUTO 0.02 K/mm3 (0.00-0.10); IMMATURE GRAN PERCENT AUTO 0 % (0-1); LYMPHOCYTES ABSOLUTE AUTO 1.78 K/mm3 (0.84-5.20); LYMPHOCYTES PERCENT AUTO 28 % (21-46); MONOCYTES ABSOLUTE AUTO 0.81 K/mm3 (0.16-1.47); MONOCYTES PERCENT AUTO 13 % (4-13); Mean Corpuscular HGB 20.9 pg (26.0-34.0); Mean Corpuscular HGB Conc 29.5 g/dL (31.5-36.5); Mean Corpuscular Volume 71 fL (80-100); Mean Platelet Volume 10.2 fL (9.1-12.4); NEUTROPHILS ABSOLUTE AUTO 3.64 K/mm3 (1.96-9.15); NEUTROPHILS PERCENT AUTO 57 % (41-73); Platelet Count 137 K/mm3 (150-400); RDW Coefficient Variation 18.9 % (11.7-14.2); RDW Standard Deviation 48.2 fL (35.1-46.3); Red Blood Cell Count 2.35 M/mm3 (4.30-5.90); White Blood Cell Count 6.34 K/mm3 (4.00-11.30)
[2022-12-07 16:53] LABS: Albumin, Blood 3.3 g/dL (3.4-5.0); Albumin/Globulin Ratio 0.6 (0.8-1.8); Bilirubin, Total 0.7 mg/dL (0.1-1.0); Bun/Creatinine Ratio 23.7 (12.0-20.0); Calcium, Blood 9.1 mg/dL (8.5-10.1); Creatinine, Blood 1.39 mg/dL (0.60-1.20); Globulin, Blood 5.4 g/dL (2.2-4.0); Potassium, Blood 4.7 mmol/L (3.5-5.5); Total Protein, Blood 8.7 g/dL (6.4-8.2)
[2022-12-07 16:55] LABS: Hemoglobin 4.9 g/dL (13.5-17.5)
[2022-12-07 16:56] LABS: Hematocrit 16.6 % (37.0-53.0)
== END | disposition home or self-care (01) ==
LOC: LAB SHORT 16:34 → LAB 16:34
PROVIDERS: Physician Assistant
DX: M79.89 Other specified soft tissue disorders (principal); R06.00 Dyspnea, unspecified
CPT/HCPCS: 80053; 83880; 85025

== ENCOUNTER 2023-06-23 17:44 | Emergency (ER) | payer OTHER ==
[~2023-06-23] VITALS: Ht 182.9 cm; Wt 77.1 kg
[~2023-06-23 17:44] MED LIST changes: +Acetaminophen650 M1 PO; +Cyclobenzaprine5 MG PO; +Lisinopril2.5 MG PO; +PRED20 PO
[2023-06-23 18:30] LABS: Calcium, Ionized (POC) 1.33 mmol/L (1.10-1.46); Chloride (POC) 117 mmol/L (98-108); Creatinine (POC) 1.5 mg/dL (0.8-1.3); Glucose (ISTAT POC) 106 mg/dL (70-99); Hemoglobin (POC) 9.2 g/dL (13.5-17.5); Potassium (POC) 6.5 mmol/L (3.5-5.5); Sodium (POC) 140 mmol/L (135-148); Total CO2 (POC) 15 mmol/L (21-32)
[2023-06-23] MEDS ORDERED: TAMSULOSIN HCL0.4 M1 PO (18:48)
[2023-06-23] MEDS ORDERED: SPIRONOLACTONE25 MG PO (18:48)
[2023-06-23] MEDS ORDERED: LISI20 PO (18:48)
[2023-06-23] MEDS ORDERED: C COMPLEX1000 M1 PO (18:49)
[2023-06-23 18:53] LABS: BASOPHILS ABSOLUTE AUTO 0.03 K/mm3 (0.00-0.23); BASOPHILS PERCENT AUTO 1 % (0-2); EOSINOPHILS ABSOLUTE AUTO 0.18 K/mm3 (0.00-0.68); EOSINOPHILS PERCENT AUTO 3 % (0-6); Hematocrit 28.8 % (37.0-53.0); Hemoglobin 9.6 g/dL (13.5-17.5); IMMATURE GRAN ABSOLUTE AUTO 0.01 K/mm3 (0.00-0.10); IMMATURE GRAN PERCENT AUTO 0 % (0-1); LYMPHOCYTES ABSOLUTE AUTO 1.32 K/mm3 (0.84-5.20); LYMPHOCYTES PERCENT AUTO 25 % (21-46); MONOCYTES ABSOLUTE AUTO 0.55 K/mm3 (0.16-1.47); MONOCYTES PERCENT AUTO 10 % (4-13); Mean Corpuscular HGB 32.4 pg (26.0-34.0); Mean Corpuscular HGB Conc 33.3 g/dL (31.5-36.5); Mean Corpuscular Volume 97 fL (80-100); Mean Platelet Volume 9.6 fL (9.1-12.4); NEUTROPHILS ABSOLUTE AUTO 3.24 K/mm3 (1.96-9.15); NEUTROPHILS PERCENT AUTO 61 % (41-73); Platelet Count 131 K/mm3 (150-400); RDW Coefficient Variation 14.2 % (11.7-14.2); RDW Standard Deviation 50.1 fL (35.1-46.3); Red Blood Cell Count 2.96 M/mm3 (4.30-5.90); White Blood Cell Count 5.33 K/mm3 (4.00-11.30)
[2023-06-23 19:20] LABS: Albumin, Blood 3.6 g/dL (3.4-5.0); Albumin/Globulin Ratio 0.7 (0.8-1.8); Bilirubin, Total 0.5 mg/dL (0.1-1.0); Bun/Creatinine Ratio 43.7 (12.0-20.0); Calcium, Blood 9.4 mg/dL (8.5-10.1); Creatinine, Blood 1.35 mg/dL (0.60-1.20); Potassium, Blood 6.5 mmol/L (3.5-5.5); Total Protein, Blood 8.6 g/dL (6.4-8.2)
[2023-06-23 23:06] VITALS: BP 141/94
== END 2023-06-23 23:07 | disposition home or self-care (01) ==
LOC: ER 17:44
PROVIDERS: Student in an Organized Health Care Education/Training Program
DX: E87.5 Hyperkalemia (principal); I12.9 Hypertensive chronic kidney disease with stage 1 through stage 4 chronic kidney disease, or unspecified chronic kidney disease; N18.2 Chronic kidney disease, stage 2 (mild); F01.50 Vascular dementia, unspecified severity, without behavioral disturbance, psychotic disturbance, mood disturbance, and anxiety; Z79.899 Other long term (current) drug therapy
CPT/HCPCS: 80047; 80053; 84132; 85014; 85025; 93005; 93010; 94644; 94664; 96374; 96375; 99283-25; A9270; J0612; J1815; J7799

== ENCOUNTER 2024-10-30 14:39 | Inpatient (IN) | payer OTHER ==
[~2024-10-30] VITALS: Ht 182.9 cm; Wt 84.5 kg
[~2024-10-30 14:39] MED LIST changes: +C COMPLEX1000 M1 PO; +SPIRONOLACTONE25 MG PO; +TAMSULOSIN HCL0.4 M1 PO
[2024-10-30] MEDS ORDERED: HYDROmorphone HCl/Pf 1MG SYR IV ONE (15:35)
[2024-10-30] MEDS ORDERED: Ketorolac Tromethamine 15mg Vial IV ONE (15:35)
[2024-10-30 16:24] LABS: BASOPHILS ABSOLUTE AUTO 0.03 K/mm3 (0.00-0.23); BASOPHILS PERCENT AUTO 0 % (0-2); EOSINOPHILS ABSOLUTE AUTO 0.24 K/mm3 (0.00-0.68); EOSINOPHILS PERCENT AUTO 3 % (0-6); Hemoglobin 9.9 g/dL (13.5-17.5); IMMATURE GRAN ABSOLUTE AUTO 0.02 K/mm3 (0.00-0.10); IMMATURE GRAN PERCENT AUTO 0 % (0-1); LYMPHOCYTES ABSOLUTE AUTO 1.04 K/mm3 (0.84-5.20); LYMPHOCYTES PERCENT AUTO 14 % (21-46); MONOCYTES PERCENT AUTO 9 % (4-13); Mean Corpuscular HGB 32.6 pg (26.0-34.0); Mean Corpuscular HGB Conc 34.1 g/dL (31.5-36.5); Mean Corpuscular Volume 95 fL (80-100); Mean Platelet Volume 9.7 fL (9.1-12.4); NEUTROPHILS ABSOLUTE AUTO 5.39 K/mm3 (1.96-9.15); NEUTROPHILS PERCENT AUTO 73 % (41-73); Platelet Count 112 K/mm3 (150-400); RDW Coefficient Variation 13.8 % (11.7-14.2); RDW Standard Deviation 47.8 fL (35.1-46.3); Red Blood Cell Count 3.04 M/mm3 (4.30-5.90); White Blood Cell Count 7.42 K/mm3 (4.00-11.30)
[2024-10-30 16:45] LABS: Albumin, Blood 3.4 g/dL (3.4-5.0); Albumin/Globulin Ratio 0.7 (0.8-1.8); Bilirubin, Total 1.2 mg/dL (0.1-1.0); Calcium, Blood 8.4 mg/dL (8.5-10.1); Creatinine, Blood 1.07 mg/dL (0.60-1.20); Globulin, Blood 4.8 g/dL (2.2-4.0); Total Protein, Blood 8.2 g/dL (6.4-8.2)
[2024-10-30 21:10] VITALS: BP 139/67
[2024-10-30] MEDS ORDERED: Ondansetron HCl 2 MG / ML 2ML Vial IV PRN (21:20)
[2024-10-30] MEDS ORDERED: FentaNYL Citrate 50 MCG/ML 2 ML Injection IV PRN (21:20)
[2024-10-30 22:30] LABS: International Normalized Ratio 1.02; Prothrombin Time Results 10.9 Sec (9.7-11.5)
[2024-10-31] VITALS (20 sets, daily range): BP systolic 91–163; BP diastolic 43–81
--- NOTE | 2024-10-31 04:33 | NUR ---
SHIFT SUMMARY ADMITTED FOR LEFT HIP FX, PATIENT HAS BEEN NPO SINCE MIDNIGHT. LEFT HIP HAS NOTED SWELLING AND EXTERNAL ROTATION. SCDS TO RLE. MEDICATED FOR PAIN PER EMAR. CHG BATH COMPLETE AND PICC DRESSING CHANGED THIS SHIFT. LABS DRAWN AND SENT, PATIENT MEDICATED FOR PAIN PER EMAR. COMPLETE BATH AND LINEN CHANGE THIS SHIFT. PATIENT WOUND DRESSINGS CHANGED ALL WITH NOTED PURULENT DRNG. WOUND PICS ON CHART. PATIENT ABLE TO MAKE NEEDS KNOWN, VSS, CALL LIGHT IN REACH.
--- NOTE | 2024-10-31 04:51 | NUR ---
SHIFT SUMMARY NEW ADMIT FOR LEFT HIP FX, MEDICATED FOR PAIN PER EMAR. NPO SINCE MIDNIGHT. CHG BATH COMPLETE. SCDS AND ICE PACK IN PLACE. VSS. ORIENTED TO CALL LIGHT. ORTHO CONSULT PLACED AWAITING POSSIBLE SURGERY.
[2024-10-31 06:36] LABS: BASOPHILS ABSOLUTE AUTO 0.04 K/mm3 (0.00-0.23); BASOPHILS PERCENT AUTO 1 % (0-2); EOSINOPHILS ABSOLUTE AUTO 0.24 K/mm3 (0.00-0.68); EOSINOPHILS PERCENT AUTO 4 % (0-6); Hematocrit 28.1 % (37.0-53.0); Hemoglobin 9.7 g/dL (13.5-17.5); IMMATURE GRAN ABSOLUTE AUTO 0.01 K/mm3 (0.00-0.10); IMMATURE GRAN PERCENT AUTO 0 % (0-1); LYMPHOCYTES ABSOLUTE AUTO 1.32 K/mm3 (0.84-5.20); LYMPHOCYTES PERCENT AUTO 22 % (21-46); MONOCYTES ABSOLUTE AUTO 0.59 K/mm3 (0.16-1.47); MONOCYTES PERCENT AUTO 10 % (4-13); Mean Corpuscular HGB Conc 34.5 g/dL (31.5-36.5); Mean Corpuscular Volume 96 fL (80-100); Mean Platelet Volume 10.3 fL (9.1-12.4); NEUTROPHILS ABSOLUTE AUTO 3.78 K/mm3 (1.96-9.15); NEUTROPHILS PERCENT AUTO 63 % (41-73); Platelet Count 119 K/mm3 (150-400); RDW Coefficient Variation 13.8 % (11.7-14.2); Red Blood Cell Count 2.94 M/mm3 (4.30-5.90); White Blood Cell Count 5.98 K/mm3 (4.00-11.30)
[2024-10-31 06:54] LABS: Albumin, Blood 3.2 g/dL (3.4-5.0); Albumin/Globulin Ratio 0.7 (0.8-1.8); Bilirubin, Total 1.2 mg/dL (0.1-1.0); Bun/Creatinine Ratio 29.2 (12.0-20.0); Calcium, Blood 8.4 mg/dL (8.5-10.1); Creatinine, Blood 0.99 mg/dL (0.60-1.20); Globulin, Blood 4.7 g/dL (2.2-4.0); Potassium, Blood 3.9 mmol/L (3.5-5.5); Total Protein, Blood 7.9 g/dL (6.4-8.2)
[2024-10-31] MEDS ORDERED: HYDROmorphone HCl/Pf 1MG SYR IV PRN ×3 (07:50→14:05)
[2024-10-31] MEDS ORDERED: Atorvastatin 40 MG Tab PO SCH (09:00)
[2024-10-31] MEDS ORDERED: Carvedilol 3.125 MG Tab PO SCH (09:00)
[2024-10-31] MEDS ORDERED: Tamsulosin HCl 0.4 MG Cap PO SCH (09:00)
--- NOTE | 2024-10-31 10:18 | NUR ---
ecg COMPLETE. DR POON IN WITH PT.
[2024-10-31] MEDS ORDERED: Ropivacaine 0.5% HCl/Pf 123.125 MG,EPINEPHrine HCL 0.25 MG,Ketorolac Tromethamine 15 MG... INFIL SCH (12:05)
[2024-10-31] MEDS ORDERED: CeFAZolin Sodium 2,000 MG in NS 100 ML IV SCH ×2 (12:05→21:00)
[2024-10-31] MEDS ORDERED: Lactated Ringer's 1,000 ML IV SCH (12:05)
[2024-10-31] MEDS ORDERED: Tranexamic Acid 100 ML IV SCH (12:12)
--- NOTE | 2024-10-31 12:14 | NUR ---
PT RECENTLY HERE BY BED WITH OTHER STAFF. History, Chart, Medications and Allergies reviewed before start of procedure.Patient confirms NPO status and agrees with scheduled surgery. Pre-Op teaching done. Pt verbalizes understanding. Lungs clear T/O to Auscultation.
[2024-10-31] MEDS ORDERED: propofoL 20 ML IV ONE (12:22)
[2024-10-31] MEDS ORDERED: FentaNYL Citrate 50 MCG/ML 2 ML Injection ONE (12:25)
[2024-10-31] MEDS ORDERED: ePHEDrine Sulfate 50 MG/ML 1ML Injection ONE (12:48)
[2024-10-31] MEDS ORDERED: HYDROmorphone HCl/Pf 1MG SYR ONE (13:07)
[2024-10-31] MEDS ORDERED: Ondansetron HCl 2 MG / ML 2ML Vial ONE (13:09)
[2024-10-31] MEDS ORDERED: Phenylephrine HCl 100 MCG/ML-NS 10MLSYR (1MG/10ML) ONE (13:09)
[2024-10-31] MEDS ORDERED: Dexamethasone Sod Phos 10 MG/ML 1ML VIAL ONE (13:09)
[2024-10-31] MEDS ORDERED: Lidocaine HCl 2% 20 ML MDV ONE (13:09)
[2024-10-31] MEDS ORDERED: Rocuronium Bromide 10 MG/ML 5ML Injection IV ONE (13:09)
--- NOTE | 2024-10-31 13:46 | NUR ---
10/31/24 1346 Lise,Molly REDNESS AND SKIN BREAKDOWN NOTED AROUND THE PATIENT'S COCCYX. BREAKDOWN WAS DRESSED WITH AN OPTIFOAM SACRAL DRESSING.
[2024-10-31] MEDS ORDERED: Albuterol 2.5 MG/3 ML VIAL INH PRN (13:55)
[2024-10-31] MEDS ORDERED: FentaNYL Citrate 50 MCG/ML 2 ML Injection IV PRN ×2 (14:00)
[2024-10-31] MEDS ORDERED: HydrALAZINE HCl 20 MG / ML 1ML Vial IV PRN (14:00)
[2024-10-31] MEDS ORDERED: Sugammadex Sodium 200 MG/2ML SDV (100 MG/ML) ONE (14:00)
[2024-10-31] MEDS ORDERED: Droperidol 5 mg/2 ml Vial IV PRN (14:00)
[2024-10-31] MEDS ORDERED: ePHEDrine Sulfate 50 MG/ML 1ML Injection IV PRN (14:00)
[2024-10-31] MEDS ORDERED: Atropine Sulfate 0.1 MG/ML 10ML SYR IV PRN (14:00)
[2024-10-31] MEDS ORDERED: Ondansetron HCl 2 MG / ML 2ML Vial IV PRN ×2 (14:05→15:05)
[2024-10-31] MEDS ORDERED: Labetalol HCL 5 MG/ML 4ML Injection (Single Dose) IV PRN (14:05)
[2024-10-31] MEDS ORDERED: OxyCODONE 5 mg/Acetamin 325 mg TABLET PO PRN (19:35)
[2024-11-01 00:07] VITALS: BP 123/62
--- NOTE | 2024-11-01 04:30 | NUR ---
NOC SUMMARY- PT PAIN MANAGED WELL. PT EATING AND DRINKING. PT VOIDING. PT DRESSING C/D/I. PT HAS BEEN RESTING COMFORTABLY. CALL LIGHT IN REACH.
[2024-11-01 05:17] VITALS: BP 166/73
[2024-11-01] MEDS ORDERED: Omeprazole 20 MG CapCR PO SCH (06:00)
[2024-11-01 07:08] VITALS: BP 144/66
[2024-11-01 15:02] VITALS: BP 120/59
[2024-11-01] MEDS ORDERED: Heparin Sodium,Porcine 5,000 UNIT/0.5 ML SDV SC SCH (16:00)
--- NOTE | 2024-11-01 16:33 | NUR ---
SHIFT SUMMARY A/OX4. PT ABLE TO COMMUNICATE NEEDS. VSS. POD X1 L BEE HIP. MANAGING PAIN PER EMAR WITH REPORTED RELIEF. PRINEO DRESSING C/D/I. WORKED WITH BOTH PHYSICAL AND OCCUPATIONAL THERAPY TODAY. PLAN FOR OUTPATIENT THERAPY. UP IN CHAIR MOST OF DAY. AMBULATING WITH SBA, FWW, GB. TOLERATING PO INTAKE. VOIDING. PLAN TO DC HOME TOMORROW. CALL LIGHT IN REACH.
[2024-11-01 19:29] VITALS: BP 141/71
[2024-11-02 04:06] VITALS: BP 151/63
--- NOTE | 2024-11-02 05:17 | NUR ---
NOC SUMMARY- PT PAIN MANAGED WELL. PT EATING AND DRINKING. PT VOIDING WELL. PT HAS NO NEW ISSUES. PT DRESSING C/D/I. CALL LIGHT IN REACH.
[2024-11-02 07:14] VITALS: BP 138/60
[2024-11-02] MEDS ORDERED: OxyCODONE 5 mg/Acetamin 325 mg TABLET PO PRN (08:02)
[2024-11-02] MEDS ORDERED: Percocet 5-3251 EACH PO (14:54)
[2024-11-02] MEDS ORDERED: ATOR40TA PO (14:55)
[2024-11-02] MEDS ORDERED: CARV3.125 PO (14:55)
--- NOTE | 2024-11-02 16:13 | NUR ---
DISCHARGE: PACKET PRINTED AND PT EDUCATED. NO IV ACCESS AT THIS TIME. PT SCRIPTS FAXED TO [facility] IN [place]. PT HAS FWW, AND TOOK IT HOME WITH HIM. PT LEFT UNIT WITH AND LIAM BARBARA VIA WHEELCHAIR AT ABOUT 1520
== END 2024-11-02 15:43 | disposition home or self-care (01) | DRG 522 ==
LOC: ER 14:39 → SURS 18:20
PROVIDERS: Orthopaedic Surgery; Student in an Organized Health Care Education/Training Program; ADMIT Internal Medicine
PROC: 0SRS01Z Replacement of Left Hip Joint, Femoral Surface with Metal Synthetic Substitute, Open Approach (ICD-10-PCS; principal; 2024-10-31 12:30)
DX: S72.012A Unspecified intracapsular fracture of left femur, initial encounter for closed fracture (principal); I85.10 Secondary esophageal varices without bleeding; K70.30 Alcoholic cirrhosis of liver without ascites; F10.11 Alcohol abuse, in remission; E78.5 Hyperlipidemia, unspecified; N40.0 Benign prostatic hyperplasia without lower urinary tract symptoms; N18.2 Chronic kidney disease, stage 2 (mild); I12.9 Hypertensive chronic kidney disease with stage 1 through stage 4 chronic kidney disease, or unspecified chronic kidney disease; F01.50 Vascular dementia, unspecified severity, without behavioral disturbance, psychotic disturbance, mood disturbance, and anxiety; D64.9 Anemia, unspecified; F17.210 Nicotine dependence, cigarettes, uncomplicated; W01.0XXA Fall on same level from slipping, tripping and stumbling without subsequent striking against object, initial encounter; Y92.009 Unspecified place in unspecified non-institutional (private) residence as the place of occurrence of the external cause; Z86.19 Personal history of other infectious and parasitic diseases; Z95.2 Presence of prosthetic heart valve
CPT/HCPCS: 36415; 73501; 73502; 73562-LT; 80053; 83880; 85025; 85610; 86850; 86900; 86901; 93005; 93010; 93306; 94760; 96374; 96375; 97110; 97112; 97116; 97161; 97165; 97530; 97535; 99285-25; A9270; C1713; C1776; J0171; J0690; J0735; J1100; J1171; J1644; J1885; J2371; J2405; J2704; J2795; J3010; J7120

== ENCOUNTER 2025-06-25 13:29 | Observation (INO) | payer OTHER, MEDICARE ==
[~2025-06-25] VITALS: Ht 182.9 cm; Wt 78.3 kg
[~2025-06-25 13:29] MED LIST changes: +ATOR40TA PO; +CARV3.125 PO; +Percocet 5-3251 EACH PO
[2025-06-25 14:17] LABS: BASOPHILS ABSOLUTE AUTO 0.05 K/mm3 (0.00-0.23); BASOPHILS PERCENT AUTO 0 % (0-2); EOSINOPHILS ABSOLUTE AUTO 0.01 K/mm3 (0.00-0.68); EOSINOPHILS PERCENT AUTO 0 % (0-6); Hematocrit 33.9 % (37.0-53.0); Hemoglobin 12.0 g/dL (13.5-17.5); IMMATURE GRAN ABSOLUTE AUTO 0.06 K/mm3 (0.00-0.10); IMMATURE GRAN PERCENT AUTO 0 % (0-1); LYMPHOCYTES ABSOLUTE AUTO 1.84 K/mm3 (0.84-5.20); LYMPHOCYTES PERCENT AUTO 13 % (21-46); MONOCYTES ABSOLUTE AUTO 1.17 K/mm3 (0.16-1.47); MONOCYTES PERCENT AUTO 8 % (4-13); Mean Corpuscular HGB Conc 35.4 g/dL (31.5-36.5); Mean Corpuscular Volume 91 fL (80-100); NEUTROPHILS ABSOLUTE AUTO 11.03 K/mm3 (1.96-9.15); NEUTROPHILS PERCENT AUTO 78 % (41-73); NRBC ABSOLUTE 0.00 K/mm3 (0.00-0.02); NRBC Auto 0.0 /100 WBC (0.0-0.2); Platelet Count 162 K/mm3 (150-400); RDW Coefficient Variation 12.1 % (11.7-14.2); RDW Standard Deviation 41.1 fL (35.1-46.3)
[2025-06-25 14:37] LABS: Alanine Aminotransfer (ALT/SGP 22.0 U/L (12-78); Albumin, Blood 3.7 g/dL (3.4-5.0); Albumin/Globulin Ratio 0.8 (0.8-1.8); Anion Gap 9.0 mmol/L (3-11); Aspartate Aminotrans (AST/SGOT 28.0 U/L (12-37); Bilirubin, Total 1.3 mg/dL (0.1-1.0); Blood Urea Nitrogen 20.0 mg/dL (8-24); CO2, Blood 24.0 mmol/L (21-32); Calcium, Blood 9.0 mg/dL (8.5-10.1); Chloride, Blood 103.0 mmol/L (98-108); Creatinine, Blood 0.97 mg/dL (0.60-1.20); Globulin, Blood 4.8 g/dL (2.2-4.0); Glucose, Blood 104.0 mg/dL (70-99); Potassium, Blood 4.4 mmol/L (3.5-5.5); Sodium, Blood 132.0 mmol/L (136-145); Total Protein, Blood 8.5 g/dL (6.4-8.2)
[2025-06-25 14:54] LABS: Source, Urine Clean Catch
[2025-06-25 15:02] LABS: Bilirubin, Urine Neg (Neg); Color, Urine Amber (P-Yellow); Glucose Qualitative, Urine Neg (Neg); Ketones, Urine Neg (Neg); Leukocyte Esterase, Urine 1+ (Neg); Protein, Urine 4+ (Neg); Specific Gravity, Urine 1.020 (1.003-1.022); Urobilinogen, Urine 2+ (Normal)
[2025-06-25] MEDS ORDERED: Morphine Sulfate 4 MG/1 ML Injection IV ONE (15:25)
[2025-06-25] MEDS ORDERED: Ondansetron HCl 2 MG / ML 2ML Vial IV ONE (15:30)
[2025-06-25 15:45] LABS: Red Blood Cells, Urine 0-2 /hpf (0-2)
[2025-06-25] MEDS ORDERED: Morphine Sulfate 4 MG/1 ML Injection IV PRN ×2 (17:25→20:55)
[2025-06-25] MEDS ORDERED: FLU VACC TS2025(65UP)/MF59C/PF 45 MCG/0.5 ML SYRINGE IM SCH (17:30)
[2025-06-25 20:46] VITALS: BP 129/63
[2025-06-25] MEDS ORDERED: ASPIR 8181 M1 PO (23:16)
[2025-06-25] MEDS ORDERED: FERROUS SULFAT325 M3 PO (23:17)
[2025-06-26] VITALS (18 sets, daily range): BP systolic 110–151; BP diastolic 55–96
[2025-06-26] MEDS ORDERED: Piperacillin/Tazobactam Sod 4.5 GM in NS 100 ML IV SCH
[2025-06-26] MEDS ORDERED: NS 250 ML IV PRN (00:35)
--- NOTE | 2025-06-26 05:16 | NUR ---
PT ADMITTED DURING SHIFT. PATIENT ALERT AND ORIENTED X4, ABLE TO MAKE NEEDS KNOWN. PATIENT IS A SBA TO THE BATHROOM DUE TO PAIN MEDICATION BUT OTHERWISE IS INDEPENDET. PT ON ROOM AIR SATING >95%. PAIN MEDICATION WAS GIVEN PRN -SEE EMAR. IV ANTIBIOTICS WERE ALSO GIVEN. PATIENT ABLE TO SWALLOW PILLS WHOLE. CONTINENT OF BOWEL AND BLADDER. BED IN LOW POSITION WITH WHEELS LOCKED. CALL LIGHT WITHIN REAC
[2025-06-26 05:51] LABS: Alanine Aminotransfer (ALT/SGP 17.0 U/L (12-78); Albumin, Blood 3.0 g/dL (3.4-5.0); Albumin/Globulin Ratio 0.7 (0.8-1.8); Anion Gap 9.0 mmol/L (3-11); Aspartate Aminotrans (AST/SGOT 21.0 U/L (12-37); Bilirubin, Total 1.1 mg/dL (0.1-1.0); Blood Urea Nitrogen 21.0 mg/dL (8-24); CO2, Blood 24.0 mmol/L (21-32); Calcium, Blood 8.6 mg/dL (8.5-10.1); Chloride, Blood 104.0 mmol/L (98-108); Creatinine, Blood 1.13 mg/dL (0.60-1.20); Globulin, Blood 4.2 g/dL (2.2-4.0); Glucose, Blood 96.0 mg/dL (70-99); Magnesium, Blood 1.9 mg/dL (1.6-2.4); Potassium, Blood 3.8 mmol/L (3.5-5.5); Sodium, Blood 133.0 mmol/L (136-145); Total Protein, Blood 7.2 g/dL (6.4-8.2)
[2025-06-26] MEDS ORDERED: Enoxaparin 40 MG/0.4 ML SYR SC SCH (09:00)
[2025-06-26] MEDS ORDERED: Bupivacaine 0.5% HCl 5 MG/ML 30MLVIAL ONE (10:38)
--- NOTE | 2025-06-26 11:42 | NUR ---
TO DAY SURGERY VIA WC
--- NOTE | 2025-06-26 12:00 | NUR ---
INTO SDS VIA WHEELCHAIR. HISTORY AND ALLERGIES REVIEWED. PT REPORTS 5/10 RIGHT QUADRANT PAIN. LUNGS WITH EXPIRATORY WHEEZES AUSCULTATED. PT DENIES SOB AND SATS >90% ON RA. NPO STATUS CONFIRMED. PT HAS DENTURES, BUT HE LEFT THOSE AT HOME.
[2025-06-26] MEDS ORDERED: FentaNYL Citrate 50 MCG/ML 2 ML Injection ONE ×3 (12:19→15:35)
[2025-06-26] MEDS ORDERED: Rocuronium Bromide 10 MG/ML 5ML Injection IV ONE ×2 (12:20→13:38)
[2025-06-26] MEDS ORDERED: Dexamethasone Sod Phos 10 MG/ML 1ML VIAL ONE (12:26)
[2025-06-26] MEDS ORDERED: Ondansetron HCl 2 MG / ML 2ML Vial ONE ×2 (12:26→16:02)
[2025-06-26] MEDS ORDERED: Phenylephrine HCl 100 MCG/ML-NS 10MLSYR (1MG/10ML) ONE ×2 (12:28→14:40)
[2025-06-26] MEDS ORDERED: Albuterol 2.5 MG/3 ML VIAL INH PRN (13:45)
[2025-06-26] MEDS ORDERED: HYDROmorphone HCl/Pf 1MG SYR IV PRN ×2 (13:45→13:50)
[2025-06-26] MEDS ORDERED: Ondansetron HCl 2 MG / ML 2ML Vial IV PRN (13:50)
[2025-06-26] MEDS ORDERED: FentaNYL Citrate 50 MCG/ML 2 ML Injection IV PRN ×2 (13:50)
[2025-06-26] MEDS ORDERED: Labetalol HCL 5 MG/ML 4ML Injection (Single Dose) ONE (14:01)
[2025-06-26] MEDS ORDERED: Ketorolac Tromethamine 30mg Vial ONE (14:59)
[2025-06-26] MEDS ORDERED: Sugammadex Sodium 200 MG/2ML SDV (100 MG/ML) ONE (15:00)
[2025-06-26] MEDS ORDERED: Piperacillin/Tazobactam Sod 4.5 GM ONE (15:10)
[2025-06-26] MEDS ORDERED: HYDROcodone 7.5-APAP 325 TAB PO PRN (15:50)
[2025-06-26] MEDS ORDERED: HYDROmorphone HCl/Pf 1MG SYR ONE (16:02)
--- NOTE | 2025-06-26 17:00 | NUR ---
POST OP ARRIVAL TO SURGICAL UNIT VIA GOURNEY, SLID TO HOSPITAL BED. ALERT & ORIENTED BUT WISHES LIGHTS TO KEEP KEPT OFF TO REST. ABD PAINFUL. WOUND VAC TO MIDLINE ABD, SOFT BUT DISTENDED. ON L ABD x 1 GAUZE w/ TEGADERM. LUNGS CLEAR w/ DIM BASES. HRR. IVF INFUSING.
[2025-06-26] MEDS ORDERED: OMEP20ER PO (19:08)
[2025-06-26] MEDS ORDERED: B-121000 MC3 PO (19:41)
[2025-06-26] MEDS ORDERED: 8 HOUR ACETAMI650 MG PO (19:42)
--- NOTE | 2025-06-26 20:00 | NUR ---
TRANSFERED FROM ROOM 338 TO ROOM 227. PT TRANSFERED VIA HOSPITAL BED TO NEW ROOM WITH BELONGINGS. PT ORIENTED TO ROOM AND UNIT.
[2025-06-27 04:01] VITALS: BP 126/60
--- NOTE | 2025-06-27 05:55 | NUR ---
SHIFT SUMMARY NOC. PT POD 1 FOR LAP APPY CONVERT TO OPEN. PT MIDLINE COMPRESSED AND CONNECTED TO WOUND VAC, LAP SITE X1 C/D/I. PT'S ALMODOVAR BELOW BLADDER LEVEL AND DRAINING TO GRAVITY. PT MEDICATED FOR PAIN WITH SOME REPORTED RELIEF OF SX. PT TOLERATING CLD WITHOUT N/V. PT A/O X4, MAKES NEEDS KNOWN, CALL LIGHT IN REACH.
[2025-06-27 06:00] LABS: BASOPHILS ABSOLUTE AUTO 0.01 K/mm3 (0.00-0.23); BASOPHILS PERCENT AUTO 0 % (0-2); EOSINOPHILS ABSOLUTE AUTO 0.00 K/mm3 (0.00-0.68); EOSINOPHILS PERCENT AUTO 0 % (0-6); Hematocrit 29.9 % (37.0-53.0); Hemoglobin 10.2 g/dL (13.5-17.5); IMMATURE GRAN ABSOLUTE AUTO 0.04 K/mm3 (0.00-0.10); IMMATURE GRAN PERCENT AUTO 1 % (0-1); LYMPHOCYTES ABSOLUTE AUTO 0.46 K/mm3 (0.84-5.20); LYMPHOCYTES PERCENT AUTO 6 % (21-46); MONOCYTES ABSOLUTE AUTO 0.55 K/mm3 (0.16-1.47); MONOCYTES PERCENT AUTO 7 % (4-13); Mean Corpuscular HGB Conc 34.1 g/dL (31.5-36.5); Mean Corpuscular Volume 94 fL (80-100); NEUTROPHILS ABSOLUTE AUTO 6.85 K/mm3 (1.96-9.15); NEUTROPHILS PERCENT AUTO 87 % (41-73); NRBC ABSOLUTE 0.00 K/mm3 (0.00-0.02); NRBC Auto 0.0 /100 WBC (0.0-0.2); Platelet Count 143 K/mm3 (150-400); RDW Coefficient Variation 12.0 % (11.7-14.2); RDW Standard Deviation 41.8 fL (35.1-46.3)
[2025-06-27 06:27] LABS: Alanine Aminotransfer (ALT/SGP 16.0 U/L (12-78); Albumin, Blood 2.6 g/dL (3.4-5.0); Albumin/Globulin Ratio 0.6 (0.8-1.8); Anion Gap 9.0 mmol/L (3-11); Aspartate Aminotrans (AST/SGOT 22.0 U/L (12-37); Bilirubin, Total 1.3 mg/dL (0.1-1.0); Blood Urea Nitrogen 35.0 mg/dL (8-24); CO2, Blood 22.0 mmol/L (21-32); Calcium, Blood 8.2 mg/dL (8.5-10.1); Chloride, Blood 108.0 mmol/L (98-108); Creatinine, Blood 1.32 mg/dL (0.60-1.20); Globulin, Blood 4.0 g/dL (2.2-4.0); Glucose, Blood 127.0 mg/dL (70-99); Potassium, Blood 4.2 mmol/L (3.5-5.5); Sodium, Blood 135.0 mmol/L (136-145); Total Protein, Blood 6.6 g/dL (6.4-8.2)
[2025-06-27 06:59] VITALS: BP 117/56
[2025-06-27 15:11] VITALS: BP 110/50
--- NOTE | 2025-06-27 17:01 | NUR ---
SHIFT SUMMARY PATIENT IS POD1 OPEN APPY, WITH WOUND VAC AND 1 LAP SITE. ALL C/D/I, AND SX IS COMPRESSED. PATIENT UP WITH 1 ASSIST AND FWW, TO CHAIR. ALMODOVAR TO REMAIN IN PLACE UNTIL POD2 PER ORDER. PATIENT IS TOLERATING PO CL DIET. AND PO PAIN MEDICATIONS. DENIES NAUSEA. DENIES PASSING FLATUS, NO BM. ABD IS SLIGHTLY DISTENDED AND FIRM. PATIENT IS ON RA, MAINTAINS ABOVE 94% SPO2. VSS. ABLE TO MAKE NEEDS KNOWN. PATIENT HAS I.S. AT BEDSIDE AND IS ABLE TO RETURN DEMONSTRATE.
[2025-06-27 20:13] VITALS: BP 115/57
[2025-06-28 05:50] VITALS: BP 138/61
[2025-06-28 06:07] LABS: BASOPHILS ABSOLUTE AUTO 0.01 K/mm3 (0.00-0.23); BASOPHILS PERCENT AUTO 0 % (0-2); EOSINOPHILS ABSOLUTE AUTO 0.00 K/mm3 (0.00-0.68); EOSINOPHILS PERCENT AUTO 0 % (0-6); Hematocrit 25.6 % (37.0-53.0); Hemoglobin 9.0 g/dL (13.5-17.5); IMMATURE GRAN ABSOLUTE AUTO 0.05 K/mm3 (0.00-0.10); IMMATURE GRAN PERCENT AUTO 1 % (0-1); LYMPHOCYTES ABSOLUTE AUTO 0.66 K/mm3 (0.84-5.20); LYMPHOCYTES PERCENT AUTO 6 % (21-46); MONOCYTES ABSOLUTE AUTO 0.72 K/mm3 (0.16-1.47); MONOCYTES PERCENT AUTO 7 % (4-13); Mean Corpuscular HGB Conc 35.2 g/dL (31.5-36.5); Mean Corpuscular Volume 93 fL (80-100); NEUTROPHILS ABSOLUTE AUTO 9.38 K/mm3 (1.96-9.15); NEUTROPHILS PERCENT AUTO 87 % (41-73); NRBC ABSOLUTE 0.00 K/mm3 (0.00-0.02); NRBC Auto 0.0 /100 WBC (0.0-0.2); Platelet Count 149 K/mm3 (150-400); RDW Coefficient Variation 12.2 % (11.7-14.2); RDW Standard Deviation 41.1 fL (35.1-46.3)
--- NOTE | 2025-06-28 06:17 | NUR ---
SHIFT SUMMARY POD 2 APPY W/CECUMECTOMY. WOUND VAC TO MIDLINE; DRESSING CDI AND COMPRESSED. ABD LAP SITE DRESSING CDI. IS A/OX4. 1 ASSIST TRANSFER FROM CHAIR TO BED. ABEL PO, DENIES N/V. PAIN MANAGED WITH PO PER EMAR. IVF/ABX INFUSING PER ORDERS. ALMODOVAR REMOVED AT THIS TIME, AWAITING FIRST VOID. PT USING I.S. AND ENCOURAGED OOB TOLERATED. PT PLEASANT AND COOPERATIVE WITH CARE. IS CURRENTLY RESTING IN BED WITH CALL LIGHT IN REACH, RESP EVEN/UNLABORED, EYES CLOSED. WILL GIVE REPORT TO ONCOMING RN.
[2025-06-28 06:21] LABS: Anion Gap 7.0 mmol/L (3-11); Blood Urea Nitrogen 42.0 mg/dL (8-24); CO2, Blood 25.0 mmol/L (21-32); Calcium, Blood 7.6 mg/dL (8.5-10.1); Chloride, Blood 106.0 mmol/L (98-108); Creatinine, Blood 1.32 mg/dL (0.60-1.20); Glucose, Blood 117.0 mg/dL (70-99); Potassium, Blood 3.9 mmol/L (3.5-5.5); Sodium, Blood 134.0 mmol/L (136-145)
[2025-06-28 07:44] VITALS: BP 147/70
[2025-06-28] MEDS ORDERED: TAMS.4ER PO (12:34)
[2025-06-28] MEDS ORDERED: Cialis10 MG PO (12:40)
[2025-06-28] MEDS ORDERED: HYDR1TAB94 PO (12:42)
--- NOTE | 2025-06-28 15:48 | NUR ---
POST-OP PATIENT IS BACK IN ROOM @1545, DROWSY VSS, ON RA. RR 18-20. GAUZE AND ACEWRAP TO LEFT FOOT, C/D/I. SITTER IN ROOM, FAMILY LEFT TO EAT DINNER, PHONE NUMBERS ON BOARD IN ROOM.
[2025-06-28 15:56] VITALS: BP 151/64
--- NOTE | 2025-06-28 17:09 | NUR ---
SHIFT SUMMARY PATIENT IS POD 2 FOR OPEN LAZ WITH CECUM RESECTION. PATIENT HAS WOUND VAC TO MIDLINE. WITH ONE LAP SITE. VAC IS INTACT AND COMPRESSED. LAP SITE IS GAUZE AND TEGADERM WITH SCANT OLD DRNG. PATIENT IS UP WITH ONE ASSIST TO CHAIR, VOIDING SMALL AMOUNTS FREQUENTLY IN URINAL. BLADDER SCAN SHOWS 5ML AFTER A VOID OF 100 ML. JOSSELIN WAS DC'D TODAY . IV FLUIDS AND ABX CONTINUE. VSS. CONT. PULSE OX IN PLACE. ON RA. CALL LIGHT IN REACH.
[2025-06-28 19:53] VITALS: BP 149/71
[2025-06-29 04:31] VITALS: BP 139/67
--- NOTE | 2025-06-29 05:00 | NUR ---
NOC SUMMARY- PT HAS BEEN RESTING COMFORTBLY. PT WOUND VAC REMAINS IN PLACE AND COMPRESSED. PT VOIDING AND HAVING SOME SMALL BM'S. PT PAIN MANAGED WELL. NO NEW ISSUES.
[2025-06-29 05:38] LABS: BASOPHILS ABSOLUTE AUTO 0.01 K/mm3 (0.00-0.23); BASOPHILS PERCENT AUTO 0 % (0-2); EOSINOPHILS ABSOLUTE AUTO 0.03 K/mm3 (0.00-0.68); EOSINOPHILS PERCENT AUTO 0 % (0-6); Hematocrit 25.9 % (37.0-53.0); Hemoglobin 9.0 g/dL (13.5-17.5); IMMATURE GRAN ABSOLUTE AUTO 0.03 K/mm3 (0.00-0.10); IMMATURE GRAN PERCENT AUTO 0 % (0-1); LYMPHOCYTES ABSOLUTE AUTO 1.22 K/mm3 (0.84-5.20); LYMPHOCYTES PERCENT AUTO 17 % (21-46); MONOCYTES ABSOLUTE AUTO 0.62 K/mm3 (0.16-1.47); MONOCYTES PERCENT AUTO 9 % (4-13); Mean Corpuscular HGB Conc 34.7 g/dL (31.5-36.5); Mean Corpuscular Volume 92 fL (80-100); NEUTROPHILS ABSOLUTE AUTO 5.22 K/mm3 (1.96-9.15); NEUTROPHILS PERCENT AUTO 73 % (41-73); NRBC ABSOLUTE 0.00 K/mm3 (0.00-0.02); NRBC Auto 0.0 /100 WBC (0.0-0.2); Platelet Count 153 K/mm3 (150-400); RDW Coefficient Variation 12.1 % (11.7-14.2); RDW Standard Deviation 41.1 fL (35.1-46.3)
[2025-06-29 06:21] LABS: Albumin, Blood 2.5 g/dL (3.4-5.0); Anion Gap 6 mmol/L (3-11); Blood Urea Nitrogen 32 mg/dL (8-24); CO2, Blood 27 mmol/L (21-32); Calcium, Blood 7.9 mg/dL (8.5-10.1); Chloride, Blood 110 mmol/L (98-108); Creatinine, Blood 1.14 mg/dL (0.60-1.20); Glucose, Blood 94 mg/dL (70-99); Phosphorus, Blood 1.5 mg/dL (2.5-4.9); Potassium, Blood 3.5 mmol/L (3.5-5.5); Sodium, Blood 139 mmol/L (136-145)
[2025-06-29 07:33] VITALS: BP 139/62
[2025-06-29] MEDS ORDERED: Potassium Phosphate Dibasic 15 MM in Dextrose 5% 250 ML IV STA (10:56)
[2025-06-29 15:17] VITALS: BP 156/61
--- NOTE | 2025-06-29 19:43 | NUR ---
SHIFT SUMMARY S/P APPY. MIDLINE INCISION - WOUND VAC IN PLACE, PATENT. SBA TO BATHROOM FOR VOID. PASSING GAS & BM'S TODAY. PAIN CONTROLLED WELL PER EMAR. TOLERATING FULL LIQUID DIET WELL. RESTING IN BED w/CALL LIGHT WITHIN REACH.
[2025-06-29 20:06] VITALS: BP 159/70
[2025-06-30 04:54] LABS: BASOPHILS ABSOLUTE AUTO 0.03 K/mm3 (0.00-0.23); BASOPHILS PERCENT AUTO 1 % (0-2); EOSINOPHILS ABSOLUTE AUTO 0.16 K/mm3 (0.00-0.68); EOSINOPHILS PERCENT AUTO 3 % (0-6); Hematocrit 25.8 % (37.0-53.0); Hemoglobin 9.0 g/dL (13.5-17.5); IMMATURE GRAN ABSOLUTE AUTO 0.02 K/mm3 (0.00-0.10); IMMATURE GRAN PERCENT AUTO 0 % (0-1); LYMPHOCYTES ABSOLUTE AUTO 1.25 K/mm3 (0.84-5.20); LYMPHOCYTES PERCENT AUTO 22 % (21-46); MONOCYTES ABSOLUTE AUTO 0.53 K/mm3 (0.16-1.47); MONOCYTES PERCENT AUTO 9 % (4-13); Mean Corpuscular HGB Conc 34.9 g/dL (31.5-36.5); Mean Corpuscular Volume 93 fL (80-100); NEUTROPHILS ABSOLUTE AUTO 3.73 K/mm3 (1.96-9.15); NEUTROPHILS PERCENT AUTO 65 % (41-73); NRBC ABSOLUTE 0.00 K/mm3 (0.00-0.02); NRBC Auto 0.0 /100 WBC (0.0-0.2); Platelet Count 143 K/mm3 (150-400); RDW Coefficient Variation 12.2 % (11.7-14.2); RDW Standard Deviation 41.5 fL (35.1-46.3)
--- NOTE | 2025-06-30 04:54 | NUR ---
NOC SUMMARY- PT PAIN MANAGED WELL. PT VOIDING AND HAVING SOME SMALL LOOSE STOOLS. PT WOUND VAC IN PLACE AND COMPRESSED. DRESSING HAD TO BE REPAIRED SUCCESSFULY DUE TO GETTING CAUGHT WHILE GETTING UP. DRESSING REMAINS COMPRESSED. PT REPORTS HE HAS BEEN ABLE TO SLEEP SOME THIS SHIFT. PT TOLERATING PO INTAKE. NO OTHER ISSUES NOTED.
[2025-06-30 04:57] VITALS: BP 147/76
[2025-06-30 05:16] LABS: Albumin, Blood 2.3 g/dL (3.4-5.0); Anion Gap 5 mmol/L (3-11); Blood Urea Nitrogen 22 mg/dL (8-24); CO2, Blood 28 mmol/L (21-32); Calcium, Blood 8.1 mg/dL (8.5-10.1); Chloride, Blood 110 mmol/L (98-108); Creatinine, Blood 0.98 mg/dL (0.60-1.20); Glucose, Blood 91 mg/dL (70-99); Phosphorus, Blood 2.1 mg/dL (2.5-4.9); Potassium, Blood 3.8 mmol/L (3.5-5.5); Sodium, Blood 139 mmol/L (136-145)
[2025-06-30 07:21] VITALS: BP 154/82
--- NOTE | 2025-06-30 15:11 | NUR ---
.PATIENT DANGLED FOR LUNCH.PATIENT WENT BACK TO BED AND REQUESTED TO SLEEP
[2025-06-30] MEDS ORDERED: AMOCLA875 PO (16:08)
[2025-06-30] MEDS ORDERED: VISBIOME 112.51 EACH PO (16:09)
[2025-06-30] MEDS ORDERED: OXAYDO5 M1 PO (16:10)
[2025-06-30 16:11] VITALS: BP 153/117
[2025-06-30 16:21] VITALS: BP 153/89
--- NOTE | 2025-06-30 17:25 | NUR ---
DISCHARGE SUMMARY: PATIENT DISCHARGED AND IV REMOVED. EDUCATION DISCUSSED WITH PATIENT AND MEDICATION FAXED TO [facility]. DRESSING FROM WOUND VAC REMOVED PER [employer] ORDER. APPLIED ABD PAD WITH TAPE TO COVER ALBERTO. NO REDNESS OR SWELLING NOTED AT SITE. NO DRAINAGE IN WOUND VAC CANISTER UPON REMOVAL. BELONGINGS PROVIDED BACK TO PATIENT. PATIENT WHEELED OUT BY W/C.
[2025-06-30] MEDS ORDERED: Banana Flakes/Tos 1 EA Powder Pack PO SCH (21:00)
== END 2025-06-30 17:19 | disposition home or self-care (01) ==
LOC: ER 13:29 → SURS 17:04 → ERHOLD 17:04 → MEDS 17:04 → SURS 06-26 19:24
PROVIDERS: Family Medicine; Physician Assistant; Surgery; ADMIT Internal Medicine
PROC: 0DBB0ZZ Excision of Ileum, Open Approach (ICD-10-PCS; 2025-06-26)
PROC: 0DBH0ZZ Excision of Cecum, Open Approach (ICD-10-PCS; 2025-06-26)
PROC: 0DTJ0ZZ Resection of Appendix, Open Approach (ICD-10-PCS; 2025-06-26)
PROC: 0WQF0ZZ Repair Abdominal Wall, Open Approach (ICD-10-PCS; 2025-06-26)
PROC: 0WJG4ZZ Inspection of Peritoneal Cavity, Percutaneous Endoscopic Approach (ICD-10-PCS; 2025-06-26)
PROC: 8E0W0CZ Robotic Assisted Procedure of Trunk Region, Open Approach (ICD-10-PCS; 2025-06-26)
PROC: 3E03329 Introduction of Other Anti-infective into Peripheral Vein, Percutaneous Approach (ICD-10-PCS; 2025-06-26)
PROC: 0T9B70Z Drainage of Bladder with Drainage Device, Via Natural or Artificial Opening (ICD-10-PCS; principal; 2025-06-26 12:00)
DX: K35.32 Acute appendicitis with perforation, localized peritonitis, and gangrene, without abscess (principal); E87.1 Hypo-osmolality and hyponatremia; N17.9 Acute kidney failure, unspecified; N18.2 Chronic kidney disease, stage 2 (mild); D50.9 Iron deficiency anemia, unspecified; F01.50 Vascular dementia, unspecified severity, without behavioral disturbance, psychotic disturbance, mood disturbance, and anxiety; D63.1 Anemia in chronic kidney disease; I12.9 Hypertensive chronic kidney disease with stage 1 through stage 4 chronic kidney disease, or unspecified chronic kidney disease; E78.5 Hyperlipidemia, unspecified; F17.210 Nicotine dependence, cigarettes, uncomplicated; K80.20 Calculus of gallbladder without cholecystitis without obstruction; N40.1 Benign prostatic hyperplasia with lower urinary tract symptoms; R33.8 Other retention of urine; D64.89 Other specified anemias; R00.1 Bradycardia, unspecified; E83.39 Other disorders of phosphorus metabolism; E87.6 Hypokalemia; R19.7 Diarrhea, unspecified; K42.9 Umbilical hernia without obstruction or gangrene; Z53.31 Laparoscopic surgical procedure converted to open procedure; Z86.19 Personal history of other infectious and parasitic diseases; Z96.653 Presence of artificial knee joint, bilateral; Z98.890 Other specified postprocedural states; Z83.6 Family history of other diseases of the respiratory system; Z80.3 Family history of malignant neoplasm of breast; Z82.49 Family history of ischemic heart disease and other diseases of the circulatory system
CPT/HCPCS: 36415; 74177; 80048; 80053; 80069; 81001; 82947; 83735; 85025; 87086; 88307; 94760; 94762; 96372; 96374-59; 96375; 96376; 99285-25; A9270; G0378; J1100; J1171; J1650; J1885; J2270; J2371; J2405; J2543; J2704; J3010; J7050; J7060; J7120; Q9967